=== PATIENT | male | born 1975 | race Hispanic/Latino ===

== ENCOUNTER → 2022-02-22 | Outpatient (CLI) | payer OTHER | END | disposition home or self-care (01) | LOC: RAH 12:25 | PROVIDERS: ATTEND Family Medicine | DX: M47.816 Spondylosis without myelopathy or radiculopathy, lumbar region (principal); M47.817 Spondylosis without myelopathy or radiculopathy, lumbosacral region | CPT/HCPCS: 72141; 72146; 72148 ==

== ENCOUNTER 2024-05-09 06:22 | Day surgery (SDC) | payer OTHER ==
[2024-05-07 13:51] LABS: BASOPHILS # (AUTO) 0.06 K/uL (0.00-0.20); EOSINOPHILS # (AUTO) 0.18 K/uL (0.00-0.70); HEMATOCRIT 48.8 % (42-54); IMMATURE GRANULOCYTE ABSOLUTE 0.03 K/uL (0-1); LYMPHOCYTES # (AUTO) 2.4 K/uL (1.0-4.8); LYMPHOCYTES % (AUTO) 39.8 % (21.0-51.0); MEAN CORPUSCULAR HEMOGLOBIN 26.4 pg (27.0-33.0); MEAN CORPUSCULAR HGB CONC 32.6 g/dL (32.0-36.0); MEAN CORPUSCULAR VOLUME 81.1 fL (79-99); MONOCYTES # (AUTO) 0.4 K/uL (0.1-1.0); MONOCYTES % (AUTO) 6.9 % (3.0-13.0); NEUTROPHILS # (AUTO) 2.9 K/uL (1.8-7.7); NEUTROPHILS % (AUTO) 48.8 % (40.0-77.0); PLATELET COUNT (AUTO) 134 K/uL (130-400); RED BLOOD CELL COUNT(AUTO) 6.02 MIL/uL (4.50-6.20); RED CELL DISTRIBUTION WIDTH 13.7 % (11.0-15.5); WHITE BLOOD COUNT (AUTO) 5.9 K/uL (4.8-10.8)
[2024-05-07 13:56] LABS: CREATININE 1.1 mg/dL (0.5-1.3); POTASSIUM 4.5 mmol/L (3.5-5.1)
[2024-05-07 13:58] VITALS: BP 134/70; PULSE 88; RESP 18; TEMP 97.3
[2024-05-07 14:00] LABS: INR 0.99 (0.85-1.15); PROTHROMBIN TIME 11.1 SEC (9.6-11.6)
[2024-05-07 14:01] LABS: PARTIAL THROMBOPLASTIN TIME 28.6 SEC (26.3-35.5)
--- NOTE | 2024-05-07 17:04 | NUR ---
VERIFIED CALLED DR SOTELO TO SEE IF PT NEEDS TO STOP DICLOFENAC. RECEIVED INSTRUCTIONS TO HAVE PT HOLD STARTING NOW. PTS INFORMED OF ABOVE AND VOICED UNDERSTANDING
[~2024-05-09] VITALS: Ht 182.9 cm; Wt 119.7 kg
[2024-05-09] VITALS (14 sets, daily range): BP systolic 109–137; BP diastolic 63–81; PULSE 74–93; RESP 15–20; TEMP 97.1–98.2
[~2024-05-09 06:22] MED LIST: ACET1TAB97 PO; CETI10TA57 PO; DICL75TA5 PO; DOCU240C25 PO; EMPA25TA PO; GABA-1555 PO; LOSA50TA64 PO; MVI PO; OMEP40CA21 PO; ROSU20TA98 PO; VIT B PO
[2024-05-09] MEDS: ceFAZolin SODIUM 2 GM VIAL ONE (07:27)
[2024-05-09] MEDS: 0.9%NACL 1000ML 1,000 ML IV ONE (07:27)
[2024-05-09] MEDS ORDERED: acetaMINOPHEN 100 ML ONE (07:36)
[2024-05-09] MEDS ORDERED: FAMOTIDINE 20MG VIAL IV ONE (07:36)
[2024-05-09] MEDS ORDERED: ketaMINE 50MG/ML SYRINGE 50 MG/ML DISP.SYRIN ONE (07:38)
[2024-05-09] MEDS ORDERED: LIDOCAINE PF 100MG/5ML (2%) SYRINGE 5ML ONE ×2 (07:45→10:15)
[2024-05-09] MEDS ORDERED: proPOFol 10 MG/ML 20ML VIAL IV ONE (07:45)
[2024-05-09] MEDS ORDERED: FENTanyl CITRate PF 50 MCG/1 ML 2ML VIAL ONE (07:46)
[2024-05-09] MEDS ORDERED: rocuRONium bROMide 10MG/1ML 5ML VL ONE ×2 (07:46→10:02)
[2024-05-09] MEDS ORDERED: ROPivacaine 0.5% 5MG/ML 30ML ONE (07:47)
[2024-05-09] MEDS ORDERED: MIDAZOLAM HCL 1 MG/ML 2ML VIAL ONE (07:59)
[2024-05-09] MEDS: ceFAZolin SODIUM 2 GM VIAL IVPB ONE (09:14)
[2024-05-09] MEDS ORDERED: phenylEPHRINE HCL 10 MG/ML 1ML VIAL IV ONE (09:28)
[2024-05-09] MEDS ORDERED: dexaMETHasone SOD PHOSPHATE 10MG/ML 1ML VIAL ONE (09:55)
[2024-05-09] MEDS ORDERED: ondanSETRON 4MG INJ ONE (09:55)
[2024-05-09] MEDS ORDERED: GLYCOPYRROLATE 0.2 MG/ML 5 ML VIAL ONE (09:58)
[2024-05-09] MEDS ORDERED: NEOSTIGMINE METHYLSULFATE 1MG/ML IV ONE (09:59)
[2024-05-09] MEDS ORDERED: EPINEPHrine 1 MG/ML 30ML VIAL IJ ONE (11:35)
--- NOTE | 2024-05-09 12:33 | OP ---
Operative Note: DATE OF PROCEDURE: 05/09/24 SURGEON: CLAUDIA SOTELO MD [employer] DE[employer]MENT CONSULTANT: [Jean Blair CFA] ANESTHESIA: [General anesthesia plus regional block] ANESTHESIOLOGIST/TRAY PACKER: [Carmita Barber CRNA] PREOPERATIVE DIAGNOSIS: [Right shoulder subacromial impingement, acromioclavicular joint arthritis. Possible undersurface partial rotator cuff tears] POSTOPERATIVE DIAGNOSIS: [Right shoulder subacromial impingement, acromioclavicular joint arthritis. Supraspinatus undersurface incomplete tear less than 25%. Subacromial bursitis] PROCEDURE: [Right shoulder arthroscopic intra-articular fascial supraspinatus tear debridement, bursectomy, subacromial decompression, distal clavicle resection.] ESTIMATED BLOOD LOSS: [Less than 20 mL] INDICATIONS: [The patient is a 48-year-old male with history of chronic pain to the right shoulder that has not responded to conservative treatment. Patient with history of chronic pain syndrome. The MRI shows acromioclavicular joint arthrosis and impingement. The patient is brought to the operating room for arthroscopic decompression and distal clavicle resection. Procedure understood, risks, benefits and possible complications and the patient agreed signed the consent form] DESCRIPTION OF PROCEDURE: [After adequate general anesthesia was achieved and regional block obtained the patient was placed in the beach chair position and the right upper extremity was prepped and draped in the usual manner. After identification of the bony landmarks we proceeded to make a small incision in the posterior aspect of the shoulder subacromial area through the skin followed by blunt dissection with the arthroscopic trocar entering into the shoulder joint removing the trocar and applying the arthroscope into the sheath. After inflating the joint with fluid evaluation of the joint revealed normal subscapularis, biceps tendon, labrum, glenohumeral joint surfaces. The supraspinatus tendon had what seems to be a partial tear. We then proceeded to apply an intra-articular cannula anteriorly after incision was carried down through the skin and blunt dissection was carried down and through this cannula we proceeded to apply a probe elevate in the supraspinatus noticing that the patient had a partial thickness tear with some loose tissue and this was sharply debrided. The arthroscope was removed from the joint and after reapplying the trocar into the sheath we redirected it and inserted it into the subacromial space. Once again we switch the trocar for the arthroscope and evaluation of the subacromial space revealed significant amount of bursal tissue and a third incision was made in the lateral aspect of the subacromial area through the skin and then with a blunt trocar we proceeded to enter this area followed by ap plication of the thermal ablator proceeding then to remove most of the bursal tissue opening the subacromial space noticing that there was obvious impingement due to the acromial hypertrophy and the acromioclavicular joint arthrosis present. With the use of the shaver and through the lateral cannula we proceeded to continue cleaning the subacromial space and we finally expose the rotator cuff and finding the insertion of it noticing to be normal. At this point we proceeded then to start the decompression with the use of the bur starting with the subacromial area removing the tip of the acromion first and then proceeding posteriorly and once completed we then pay attention to the distal end of the clavicle removing the inferior two thirds, switching then the bur to the anterior portal removing the superior third through this side. Once the distal clavicle was resected we then proceeded to remove the debris from the subacromial area then the fluid and the arthroscope. The incisions were then closed with 2-0 Monocryl inverted stitches followed by application of Dermabond to seal the incisions and then they were covered with a small Telfa dressings and OpSite's. The drapes were then removed and the patient was placed in an arm sling. The bed was placed in the supine position and the patient was transferred to a stretcher and taken to recovery room for follow-up by anesthesia. There were no complications during the procedure.] CLAUDIA SOTELO MD May 09, 2024 12:33
[2024-05-09] MEDS: MEPERIDINE-PF 50 MG/ML SYG ONE (13:02)
[2024-05-09] MEDS: ondanSETRON 4MG INJ ONE (13:07)
[2024-05-09] MEDS: ketOROlac 30MG VIAL (30MG/ML) ONE (13:08)
[2024-05-09] MEDS ORDERED: GABAPENTIN 300 MG CAPSULE PO SCH ×2 (14:00)
[2024-05-09] MEDS: GABAPENTIN 300 MG CAPSULE PO ONE (14:05)
[2024-05-09] MEDS: GABApentin 100 MG CAPSULE PO ONE (14:05)
--- NOTE | 2024-05-09 14:17 | NUR ---
FULL AND COMPLETE DISCHARGE INSTRUCTIONS GIVEN TO PATIENT AND FAMILY BOTH VERBALLY AND IN WRITING. VOICED UNDERSTANDING TO SURGICAL PROCEDURE PRECAUTIONS AND FOLLOW UP. NEUROVASCULARLY INTACT. SLING TO ARM APPROPIATELY. PIV REMOVED WITH CATHETER TIP INTACT. W/C WITH FAMILY TO POV TO HOME.
== END 2024-05-09 14:24 | disposition home or self-care (01) ==
LOC: DAH 06:22
PROVIDERS: ATTEND Orthopaedic Surgery
DX: M67.819 Other specified disorders of synovium and tendon, unspecified shoulder (principal); M19.011 Primary osteoarthritis, right shoulder; M75.111 Incomplete rotator cuff tear or rupture of right shoulder, not specified as traumatic; M75.41 Impingement syndrome of right shoulder; G89.4 Chronic pain syndrome; M25.811 Other specified joint disorders, right shoulder; E11.9 Type 2 diabetes mellitus without complications; E78.5 Hyperlipidemia, unspecified; K21.9 Gastro-esophageal reflux disease without esophagitis; E66.9 Obesity, unspecified; F32.A Depression, unspecified; G47.33 Obstructive sleep apnea (adult) (pediatric); Z68.35 Body mass index [BMI] 35.0-35.9, adult; Z99.89 Dependence on other enabling machines and devices; Z88.8 Allergy status to other drugs, medicaments and biological substances; Z79.01 Long term (current) use of anticoagulants; Z79.899 Other long term (current) drug therapy
CPT/HCPCS: 80048; 85025; 85610; 85730; 36415; 29824; 64415; 29826; 82948 ×2; J1885; A4663; J7030 ×2; A4565; J3490 ×5; J3010; J1100; J0171; J2003 ×2; J2250; J2704; J2405 ×2; J2710; J2175; J2795; J2371; J0690 ×2; A6204; A4930; A4215; A4213; A4222; A4221; A4216; A4223 ×2; A4600